=== PATIENT | male | born 1980 | race Caucasian/White ===

== ENCOUNTER 2017-07-02 11:55 | Emergency (ER) | payer SELFPAY ==
[2017-07-02 11:59] VITALS: BP 133/71; PULSE 82; RESP 14; TEMP 98.2; O2SAT 98
--- NOTE | 2017-07-02 13:06 | PD ---
HPI Chief Complaint: Lump, Cyst, Hernia Time Seen by Provider: 12:38 Travel History International Travel<30 days: No Contact w/Intl Traveler<30days: No Traveled to known affect area: No History of Present Illness HPI 36-year-old male presents to emergency Department with complaint of pain to his umbilical hernia that started last night. He's had the hernia for about 4-5 years. He's never had pain like this to the area before. Reports swelling to the area. Denies fevers, vomiting, abdominal pain. Denies change in stool or urine. Last had a normal bowel movement this morning and approximately 9 AM. Rates the pain 8-9/10. Pain is aggravated when he bends over or squats down. Pain is better with lying flat. He has not taken any medications or tried any treatments to alleviate his symptoms. He does not have an established primary care provider. No known allergies. Denies significant past medical history. No current medications. Has no other medical complaints. No other modifying factors or associated signs and symptoms. [facility] Social History Tobacco Use: No Allergies-Medications (Allergen,Severity, Reaction): Coded Allergies: No Known Allergies (Unverified , 07/02/17) Reported Meds & Prescriptions Reported Meds & Active Scripts Active No Active Prescriptions or Reported Medications Review of Systems Except as stated in HPI: all other systems reviewed are Neg Physical Exam Narrative GENERAL: Well-nourished, well-developed [place] male patient, in no acute distress SKIN: Warm and dry. HEAD: Atraumatic. Normocephalic. EYES: Pupils equal and round. No scleral icterus. No injection or drainage. ENT: Mucosa pink and moist. Airway patent. NECK: Trachea midline. CARDIOVASCULAR: Regular rate and rhythm. No murmur appreciated. RESPIRATORY: No accessory muscle use. Breath sounds clear and equal bilaterally. No retractions or tachypnea. GASTROINTESTINAL: Abdomen soft, non-tender, nondistended. Sounds active 4 quadrants. Umbilical hernia noted at approximately the 12 to 5 o'clock position and is tender on palpation; areas without erythema. MUSCULOSKELETAL: No obvious deformities. No clubbing. No cyanosis. No edema. NEUROLOGICAL: Awake and alert. Oriented 3. No obvious cranial nerve deficits. Motor grossly within normal limits. Normal speech. PSYCHIATRIC: Appropriate mood and affect; insight and judgment normal. Data Data Last Documented VS Vital Signs Date Time Temp Pulse Resp B/P (MAP) Pulse Ox O2 Delivery O2 Flow Rate FiO2 07/02/17 11:59 98.2 82 14 133/71 (91) 98 Orders Orders Morphine Inj (Morphine Inj) (07/02/17 13:15) Ct Abd/Pel W/O Iv Contrast (07/02/17 13:36) MDM Medical Decision Making Medical Screen Exam Complete: Yes Emergency Medical Condition: Yes Medical Record Reviewed: Yes Differential Diagnosis Umbilical hernia, incarcerated umbilical hernia, obstructed umbilical hernia, medical clearance Narrative Course 36-year-old male with an umbilical hernia that is everted. 1310: I attempted to reduce the umbilical hernia without success. Morphine ordered and I will reattempt to reduce the hernia. 1335: I reattempted reduction and Dr. Wilson evaluated and recommended CT abd/pelvis to verify reduction. CT ordered. 1504: CT abdomen/pelvis concludes: Abdomen/Pelvis CT 07/02/17 1336 Signed Impressions: Service Date/Time: June 14:01 - CONCLUSION: 1. Small periumbilical hernia containing mesenteric fat. 2. Unremarkable bowel gas pattern with no inflammatory change or obstruction. Ramon Ron MD Discussed findings of CT scan with the patient. Instructed patient to follow up with general surgery. Instructed patient to follow up with primary care provider. Patient verbalizes understanding and agreement with treatment plan. Patient is medically cleared and stable for discharge. Discussed reasons to return to the emergency department. Patient agrees with treatment plan. The patients vital signs are stable and the patient is stable for outpatient follow- up and treatment. Patient discharged home, stable and in no acute distress. Diagnosis Primary Impression: Umbilical hernia Qualified Codes: K42.9 - Umbilical hernia without obstruction or gangrene Referrals: [facility] General Surgeon Primary Care Physician Patient Instructions: General Instructions, Umbilical Hernia (ED) Additional Instructions: Ibuprofen or Tylenol as directed and as needed for pain Splint area to help keep the hernia reduced when sitting up or standing up. Follow-up with General surgery Follow-up with primary care provider Return to the emergency department immediately with worsening of symptoms Med/Other Pt SpecificInfo: No Change to Meds, No Meds Exist/No RX given Scripts No Active Prescriptions or Reported Meds Disposition: DISCHARGE HOME Condition: Stable Rosemarie Sy Jul 02, 2017 13:06
[2017-07-02] MEDS ORDERED: MORPHINE SULFATE 4 MG/ML INJ IM ONE (13:15)
--- NOTE | 2017-07-02 14:40 | RADRPT ---
EXAM DATE/TIME: 07/02/2017 14:01 [place] COMPARISON: No previous studies available for comparison. INDICATIONS : Diffuse abdomen pain, umbilical hernia. ORAL CONTRAST: No oral contrast ingested. RADIATION DOSE: 9.70 CTDIvol (mGy) MEDICAL HISTORY : None SURGICAL HISTORY : None. ENCOUNTER: Initial ACUITY: 2 days PAIN SCALE: 8/10 LOCATION: Bilateral umbilical region. TECHNIQUE: Volumetric scanning of the abdomen and pelvis was performed. Using automated exposure control and ad justment of the mA and/or kV according to patient size, radiation dose was kept as low as reasonably achievable to obtain optimal diagnostic quality images. DICOM format image data is available electro nically for review and comparison. FINDINGS: LOWER LUNGS: The visualized lower lungs are clear. LIVER: Homogeneous density without lesion. There is no dilation of the biliary tree. No calcified gallston es. SPLEEN: Normal size without lesion. PANCREAS: Within normal limits. KIDNEYS: Normal in size and shape. There is no mass, stone, or hydronephrosis. ADRENAL GLANDS: Within normal limits. VASCULAR: There is no aortic aneurysm. BOWEL/MESENTERY: The stomach, small bowel, and colon demonstrate no acute abnormality. There is no free intraperitone al air or fluid. ABDOMINAL WALL: There is a small periumbilical hernia containing mesenteric fat. RETROPERITONEUM: There is no lymphadenopathy. BLADDER: No wall thickening or mass. REPRODUCTIVE: Within normal limits. INGUINAL: There is no lymphadenopathy or hernia. MUSCULOSKELETAL: Within normal limits for patient age. CONCLUSION: 1. Small periumbilical hernia containing mesenteric fat. 2. Unremarkable bowel gas pattern with no inflammatory change or obstruction. Ramon Ron MD on July 02, 2017 at 14:35 Board Certified Radiologist. This report was verified electronically.
== END 2017-07-02 15:50 | disposition home or self-care (01) ==
LOC: NEPD 11:55
DX: K42.9 Umbilical hernia without obstruction or gangrene (principal)
CPT/HCPCS: 74176; 96372; 99285; J2270